=== PATIENT | female | born 1955 | race Caucasian/White ===

== ENCOUNTER → 2016-09-01 | Outpatient (CLI) | payer OTHER ==
--- NOTE | 2016-09-01 14:50 | DIAGNOSTIC IMAGING REPORT ---
TWO VIEW CHEST CLINICAL HISTORY: Cough. Bronchiectasis. Right-sided chest pain. FINDINGS: PA and lateral chest radiographs are compared to study dated 03/28/2011 and correlated with chest CT dated 10/24/2014. The heart is top normal for projection. There is mild atherosclerotic calcification of the thoracic aorta. There is dense airspace consolidation at the right lung base. The left lung is grossly clear. Mild emphysema is unchanged and there is chronic interstitial thickening. Biapical scarring is observed. There is no pneumothorax. The skeletal structures are osteopenic. The bony thorax appears intact. IMPRESSION: There is dense airspace consolidation at the right lung base typical in appearance for pneumonia. Radiographic follow-up to resolution is recommended. Electronically signed by: Usman Kim M.D. 09/01/2016 2:48 PM Dictated Date/Time: 09/01/2016 2:47 PM
== END | disposition home or self-care (01) ==
LOC: C.RAD1850 14:10
PROVIDERS: ATTEND Physician Assistant Medical
DX: J18.9 Pneumonia, unspecified organism (principal)

== ENCOUNTER → 2016-09-09 | Outpatient (CLI) | payer OTHER ==
--- NOTE | 2016-09-09 09:07 | DIAGNOSTIC IMAGING REPORT ---
TWO VIEW CHEST CLINICAL HISTORY: Follow-up pneumonia. FINDINGS: PA and lateral chest radiographs are compared to study dated 09/01/2016 and correlated with chest CT dated 10/24/2014. The heart is top normal for projection. There is mild atherosclerotic calcification of the thoracic aorta. Airspace consolidation is again seen at the right lung base. This has modestly cleared from 09/01/2016. The left lung is grossly clear. Mild emphysema is unchanged and there is chronic interstitial thickening. Biapical scarring is observed. There is no pneumothorax. The skeletal structures are osteopenic. The bony thorax appears intact. IMPRESSION: Again seen is airspace consolidation at the right lung base. This remains typical in appearance for pneumonia and has modestly cleared from 09/01/2016. Continued radiographic follow-up to resolution is recommended. Electronically signed by: Usman Kim M.D. 09/09/2016 9:06 AM Dictated Date/Time: 09/09/2016 9:05 AM
== END | disposition home or self-care (01) ==
LOC: C.RAD1850 08:47
PROVIDERS: ATTEND Physician Assistant Medical
DX: J18.9 Pneumonia, unspecified organism (principal)

== ENCOUNTER → 2016-10-10 | Outpatient (CLI) | payer OTHER ==
--- NOTE | 2016-10-10 09:25 | DIAGNOSTIC IMAGING REPORT ---
CHEST 2 VIEWS ROUTINE CLINICAL HISTORY: J18.9 Pneumonia Follow up chest [id number] pneumonitis COMPARISON STUDY: 09/09/2016 FINDINGS: Moderate improvement in the infiltrative changes right base compared to the prior exam. Lungs otherwise remain clear. Tortuosity of the thoracic aorta is stable. Diaphragms smooth. IMPRESSION: Mild improvement of the parenchymal infiltrative changes right base. Lungs otherwise appear clear. The residual potential is chronic. Electronically signed by: Dheeraj Dorantes M.D. 10/10/2016 9:24 AM Dictated Date/Time: 10/10/2016 9:22 AM
== END | disposition home or self-care (01) ==
LOC: C.RAD1850 09:05
PROVIDERS: ATTEND Physician Assistant Medical
DX: J18.9 Pneumonia, unspecified organism (principal)